=== PATIENT | female | born 1965 | race Caucasian/White ===

== ENCOUNTER 2021-05-25 09:19 | Day surgery (SDC) | payer MEDICARE ==
--- NOTE | 2021-05-24 08:05 | HP ---
DATE OF SURGERY: 05/25/2021 HISTORY OF PRESENT ILLNESS: The patient is a 56-year-old female who presented initially to us for evaluation of a hernia. The patient ended up having diastasis rectus on physical exam. The patient did have a CT scan at [facility] for this reason and it did show she had some mild wall thickening of the terminal ileum. She had had some prominent mesenteric lymph nodes. She had some thickening in the peritoneal right lower quadrant. She had what appeared to be also some cirrhosis of the liver. There were also several small lymph nodes within the abdominal mesentery, 1 x 0.8 cm prominent. The patient does state a history of colectomy in 2018 emergent for trauma. She did have an ostomy and had that reversed in 2019. She had a laparoscopic ventral hernia repair recently in [address] scan showed that was intact. She has had four sections, appendectomy, cholecystectomy and bilateral salpingo-oophorectomy. The patient states her last colonoscopy was in 2019. PAST MEDICAL HISTORY: Reflux. PAST SURGICAL HISTORY: As stated in the history of present illness as well as spinal cord injury with laminectomy, plate and talha in the neck. ALLERGIES: NKDA. MEDICATIONS: Omeprazole, Lyrica. FAMILY HISTORY: Colon cancer. SOCIAL HISTORY: Smokes six cigarettes a day, occasional alcohol. REVIEW OF SYSTEMS: CONSTITUTIONAL: Denies fever or chills. CHEST: Denies shortness of breath. CVS: Denies chest pain. ABDOMEN: Reports abdominal pain, diastasis rectus. Denies any nausea, vomiting, diarrhea, constipation or rectal bleeding. PHYSICAL EXAMINATION: GENERAL: No acute distress. CHEST: Nonlabored. No shortness of breath. CVS: Regular rate and rhythm. ABDOMEN: Soft, nontender. Diastasis recti noted. IMPRESSION: Abnormal CT scan. PLAN: Colonoscopy with Dr. Can Burk. As dictated by Diana Roldan NP.
[2021-05-25] MEDS ORDERED: Lactated Ringers 1,000 ML IV SCH (10:00)
[2021-05-25] MEDS ORDERED: Versed 2 MG/2 ML Injection IV ONE (10:20)
[2021-05-25] MEDS ORDERED: DIPRIVAN 200 MG/20 ML IV ONE (12:02)
[2021-05-25 13:10] VITALS: BP 188/87; PULSE 54; O2SAT 99
--- NOTE | 2021-05-25 13:27 | OP ---
SURGERY DATE/TIME: 05/25/2021 1158 PREOPERATIVE DIAGNOSIS: Right lower quadrant pain. POSTOPERATIVE DIAGNOSIS: Moderate internal hemorrhoids. PROCEDURE: Colonoscopy complete to cecum. SURGEON: Can Burk M.D. ANESTHESIA: MAC. COMPLICATIONS: None. CONDITION: Stable. INDICATION: The patient has right lower quadrant pain and CT scan showing thickening of the colon. No recent colonoscopic examination. DESCRIPTION OF PROCEDURE: She was taken to endoscopy. MAC sedation provided. Excellent anesthesia level was present. Anal rectal tone was normal. Scope introduced. Scope advanced to the cecum. Cecum, ileocecal valve well seen. Appendiceal orifice was also defined. Ileocecal entrance was defined but it was just a hair smaller than the scope. Despite three or four attempts it would not pass into the ileum. On circumferential withdrawal cecum, ascending, hepatic, transverse, splenic, descending, sigmoid, rectum, anus. There was moderate internal hemorrhoids otherwise normal. PLAN: Follow up five to ten years.
== END 2021-05-25 13:15 | disposition home or self-care (01) ==
LOC: SDC 09:19
PROVIDERS: ATTEND Surgery
DX: K64.8 Other hemorrhoids (principal); R10.31 Right lower quadrant pain
CPT/HCPCS: J2250; J2704